=== PATIENT | male | born 1965 | race African-American/Black ===

== ENCOUNTER 2021-10-14 12:49 | Inpatient (IN) ==
[2021-10-14] MEDS ORDERED: AMMONIA INHALANT 1 EACH AMP INH ONE (13:50)
[2021-10-14 14:31] LABS: ABG Base Excess 0.3 MMOL/L (-2.5-2.5); ABG HCO3 24.7 MMOL/L (20-26); ABG Oxygen Saturation 97.9 % (95-100); ABG PCO2 32.4 MM HG (35-48); ABG PH 7.468 (7.35-7.45); ABG PO2 96.4 MM HG (80-95); ABG TCO2 21.3 MMOL/L (23-27)
[2021-10-14 14:50] LABS: Basophils # 0.1 10*3/uL (0.0-0.2); Basophils % 0.5 % (0.0-0.8); Eosinophils % 0.2 % (0.00-10.9); Hematocrit 27.7 VOL% (42.0-52.0); Immature Granulocytes % 3.2 %; Immature Granulocytes Absolute 0.39 #; Lymphocytes # 1.2 10*3/uL (1.4-4.0); Lymphocytes % 9.4 % (21.2-54.2); Mean Corpuscular HGB Conc 34.7 GM/DL (32-36); Mean Corpuscular Volume 70.8 FL (87-102); Mean Platelet Volume 9.7 FL (9.6-12.0); Monocytes % 3.3 % (1.7-12.7); NRBC # 0.29 10*3/uL; Neutrophils % 83.4 % (38.7-73.9); Red Cell Distribution Width 17.8 % (9.3-17.3); White Blood Count 12.3 T/CUMM (4-12)
[2021-10-14 15:00] LABS: INR 1.3; Partial Thromboplastin Time 32.1 SECS (23.8-32.1)
[2021-10-14 15:04] LABS: Hemoglobin 9.6 GM/DL (14.0-18.0); Platelet Count 77 T/CUMM (130-400); Red Blood Count 3.91 MC/CUMM (3.8-5.5)
[2021-10-14 15:10] LABS: Alanine Aminotransferase 130 U/L (16-61); Alkaline Phosphatase 435 U/L (45-117); Aspartate Amino Transferase 361 U/L (0-37); Blood Urea Nitrogen 30 MG/DL (7-18); Calcium 9.1 MG/DL (8.5-10.1); Carbon Dioxide 25 MMOL/L (21-32); Estimated Glom Filtration Rate 85 ML/MIN; Glucose 142 MG/DL (74-106); Osmolality,Calculated 286.4 MOS/KG (273-304); Potassium 4.1 MMOL/L (3.5-5.1); Sodium 140 MMOL/L (136-145); Total Protein 7.9 G/DL (6.4-8.2)
[2021-10-14 15:15] LABS: Anisocytosis Slight; Band Neutrophils 6 % (0-10); Hypochromia 1+; Lymphocytes 12 % (20-55); Metamyelocytes 1 %; Nucleated Red Blood Cells 6 (0-5); Segmented Neutrophils 80 % (50-85); Total Cells Counted 100
[2021-10-14 15:16] LABS: Platelet Estimate Decreased; Polychromasia 1+; Schistocytes Few; Target Cells Few
[2021-10-14 15:36] LABS: Acetaminophen < 2.0 UG/ML (10-30); Salicylate < 2.8 MG/DL (2.8-20)
[2021-10-14] MEDS ORDERED: cefTRIAXone 2,000 MG in SODIUM CHLORIDE 0.9% 100 ML IV ONE (15:53)
[2021-10-14] MEDS ORDERED: SODIUM CHLORIDE 0.9% 1,000 ML IV STA (16:01)
[2021-10-14] MEDS ORDERED: cefTRIAXone 2,000 MG VIAL ONE (16:13)
[2021-10-14] MEDS ORDERED: ONDANSETRON 4 MG/2 ML VIAL IV PRN (16:15)
[2021-10-14] MEDS ORDERED: ALBUTEROL 2.5 MG/3 ML NEB RESP TX PRN (16:15)
[2021-10-14 16:24] LABS: Bilirubin,Urine Negative (Negative); Blood, Urine Moderate mg/dL (Negative); Glucose,Urine (UA) 50 mg/dL (Negative); Ketones,Urine Negative (Negative); Mucus,Urine Occasional /LPF (Occasional); Nitrite,Urine Negative (Negative); Protein,Urine 30 MG/DL; RBC,Urine 2 /HPF (0-4); Squamous Epithelial Cell,Urine Occasional /HPF (0-10); Urine Appearance CLEAR (Clear); Urine Color Yellow (Yellow); Urine Specific Gravity 1.012 (1.001-1.035); Urine Urobilinogen < 2.0 EU/DL (<2.0)
[2021-10-14 16:28] LABS: Barbiturates Screen,Urine Negative (Negative); Benzodiazepines Screen,Urine Negative (Negative); Cannabinoid Screen,Urine Negative (Negative); Opiate Screen,Urine Negative (Negative); Phencyclidine Screen,Urine Negative (Negative)
[2021-10-14] MEDS: LACTATED RINGERS 1,000 ML IV SCH (17:18)
[2021-10-14] MEDS: MEROPENEM 500 MG in SODIUM CHLORIDE 0.9% 100 ML IV SCH ×2 (17:18→22:33)
[2021-10-14] MEDS: PANTOPRAZOLE 40 MG VIAL IV SCH (17:19)
[2021-10-14] MEDS: metroNIDAZOLE INJ 500 MG/100 ML PREMIX IV SCH (19:51)
[2021-10-14 19:54] LABS: Hepatitis B Core IgM Quant 0.24 Index; Hepatitis B Surface Ag Quant 0.17 Index; Hepatitis B Surface Ag Result Non-Reactive (NonReactive); Hepatitis C Virus Ab Quant 0.17 Index; Hepatitis C Virus Ab Result Non-Reactive (NonReactive)
[2021-10-14 20:57] LABS: Basophils % 0.2 % (0.0-0.8); Eosinophils % 0.2 % (0.00-10.9); Hematocrit 27.7 VOL% (42.0-52.0); Hemoglobin 9.7 GM/DL (14.0-18.0); Immature Granulocytes Absolute 0.21 #; Lymphocytes # 1.1 10*3/uL (1.4-4.0); Lymphocytes % 10.9 % (21.2-54.2); Mean Corpuscular Volume 69.9 FL (87-102); Mean Platelet Volume 9.5 FL (9.6-12.0); Monocytes % 3.1 % (1.7-12.7); Neutrophils % 83.6 % (38.7-73.9); Platelet Count 67 T/CUMM (130-400); Red Blood Count 3.96 MC/CUMM (3.8-5.5); Red Cell Distribution Width 17.9 % (9.3-17.3); White Blood Count 10.3 T/CUMM (4-12)
[2021-10-14 21:18] LABS: Band Neutrophils 2 % (0-10); Lymphocytes 7 % (20-55); Nucleated Red Blood Cells 3 (0-5); Segmented Neutrophils 87 % (50-85); Total Cells Counted 100
[2021-10-14 21:19] LABS: Anisocytosis 1+; Hypochromia 1+; Polychromasia 1+; Target Cells 1+
[2021-10-14 21:20] LABS: Platelet Estimate Decreased; Schistocytes Few
[2021-10-15] MEDS: metroNIDAZOLE INJ 500 MG/100 ML PREMIX IV SCH ×2 (00:45→08:53)
[2021-10-15] MEDS: MEROPENEM 500 MG in SODIUM CHLORIDE 0.9% 100 ML IV SCH ×3 (03:44→15:52)
[2021-10-15 04:57] LABS: ABG Base Excess 1.4 MMOL/L (-2.5-2.5); ABG HCO3 25.7 MMOL/L (20-26); ABG Oxygen Saturation 98.7 % (95-100); ABG PCO2 36.8 MM HG (35-48); ABG PH 7.446 (7.35-7.45); ABG TCO2 23.4 MMOL/L (23-27)
[2021-10-15] MEDS: LACTATED RINGERS 1,000 ML IV SCH ×4 (05:50→15:44)
[2021-10-15 06:02] LABS: Basophils % 0.3 % (0.0-0.8); Eosinophils % 0.4 % (0.00-10.9); Hematocrit 24.8 VOL% (42.0-52.0); Hemoglobin 8.8 GM/DL (14.0-18.0); Immature Granulocytes % 2.2 %; Immature Granulocytes Absolute 0.21 #; Lymphocytes # 0.9 10*3/uL (1.4-4.0); Lymphocytes % 9.7 % (21.2-54.2); Mean Corpuscular HGB Conc 35.5 GM/DL (32-36); Mean Corpuscular Volume 69.9 FL (87-102); Monocytes % 4.3 % (1.7-12.7); NRBC # 0.21 10*3/uL; Neutrophils % 83.1 % (38.7-73.9); Platelet Count 62 T/CUMM (130-400); Red Blood Count 3.55 MC/CUMM (3.8-5.5); Red Cell Distribution Width 17.8 % (9.3-17.3); White Blood Count 9.4 T/CUMM (4-12)
[2021-10-15 06:24] LABS: Albumin 3.3 G/DL (3.4-5.0); Band Neutrophils 1 % (0-10); Calcium 8.6 MG/DL (8.5-10.1); Lymphocytes 7 % (20-55); Nucleated Red Blood Cells 4 (0-5); Osmolality,Calculated 297.6 MOS/KG (273-304); Platelet Estimate Decreased; Potassium 4.2 MMOL/L (3.5-5.1); Segmented Neutrophils 90 % (50-85); Total Cells Counted 100; Total Protein 7.1 G/DL (6.4-8.2)
[2021-10-15 06:25] LABS: Hypochromia 1+; Microcytosis 1+
[2021-10-15 06:49] LABS: Bilirubin,Total 12.9 MG/DL (0.20-1.00)
[2021-10-15] MEDS: PANTOPRAZOLE 40 MG VIAL IV SCH (15:48)
[2021-10-15 16:12] LABS: % Iron Saturation 43.5 % (18-50); Ferritin 5355.2 ng/mL (26-388)
[2021-10-15] MEDS ORDERED: IBUPROFEN 100 MG/5 ML UDCUP PO PRN (19:28)
[2021-10-16] MEDS: LACTATED RINGERS 1,000 ML IV SCH (01:12)
[2021-10-16] MEDS: MEROPENEM 500 MG in SODIUM CHLORIDE 0.9% 100 ML IV SCH ×5 (01:12→22:05)
[2021-10-16] MEDS: IBUPROFEN 100 MG/5 ML UDCUP PO PRN ×3 (01:26→18:20)
[2021-10-16 05:48] LABS: Basophils % 0.4 % (0.0-0.8); Eosinophils # 0.1 10*3/uL (0.0-0.87); Eosinophils % 0.6 % (0.00-10.9); Hematocrit 22.7 VOL% (42.0-52.0); Hemoglobin 7.8 GM/DL (14.0-18.0); Immature Granulocytes % 3.3 %; Immature Granulocytes Absolute 0.32 #; Lymphocytes # 1.1 10*3/uL (1.4-4.0); Lymphocytes % 11.7 % (21.2-54.2); Mean Corpuscular HGB Conc 34.4 GM/DL (32-36); Mean Corpuscular Volume 71.8 FL (87-102); NRBC # 1.04 10*3/uL; Platelet Count 48 T/CUMM (130-400); Red Blood Count 3.16 MC/CUMM (3.8-5.5); Red Cell Distribution Width 17.9 % (9.3-17.3); White Blood Count 9.6 T/CUMM (4-12)
[2021-10-16 05:57] LABS: Osmolality,Calculated 308.9 MOS/KG (273-304); Potassium 4.3 MMOL/L (3.5-5.1); Thyroid Stimulating Hormone 0.821 uIU/ml (0.358-3.74)
[2021-10-16 05:59] LABS: Bilirubin,Total 14.2 MG/DL (0.20-1.00)
[2021-10-16 06:20] LABS: Eosinophils 1 % (0-10); Hypochromia 1+; Lymphocytes 12 % (20-55); Microcytosis 1+; Nucleated Red Blood Cells 18 (0-5); Platelet Estimate Decreased; Segmented Neutrophils 84 % (50-85); Total Cells Counted 100
[2021-10-16] MEDS: DEXTROSE 5% NACL 0.45% 1,000 ML IV SCH ×2 (07:22→15:31)
[2021-10-16] MEDS ORDERED: PNEUMOCOCCAL VACCINE (13 VALENT) 0.5 ML SYRINGE IM ONE (09:00)
[2021-10-16] MEDS ORDERED: INFLUENZA VIRUS VACCINE 0.5 ML SYRINGE IM ONE (09:00)
[2021-10-16] MEDS ORDERED: LACTULOSE 20 GM/30 ML UDCUP PO SCH (09:00)
[2021-10-16] MEDS ORDERED: IMMUNE GLOBULIN 10% 20 GM, IMMUNE GLOBULIN 10% 10 GM in PREMIX 1 EACH IV ONE (10:00)
[2021-10-16] MEDS ORDERED: SODIUM CHLORIDE 0.9% 1,000 ML IV PRN (10:08)
[2021-10-16] MEDS: VANCOMYCIN INJ 1,250 MG in SODIUM CHLORIDE 0.9% 250 ML IV SCH ×2 (12:29→22:38)
[2021-10-16] MEDS: PANTOPRAZOLE 40 MG VIAL IV SCH (15:40)
[2021-10-16] MEDS: INSULIN LISPRO 100 UNIT/ML SUBCUT SCH (17:54)
[2021-10-16 19:48] LABS: Hematocrit 28.1 VOL% (42.0-52.0); Hemoglobin 9.7 GM/DL (14.0-18.0)
[2021-10-17] MEDS: DEXTROSE 5% NACL 0.45% 1,000 ML IV SCH ×3 (00:20→17:45)
[2021-10-17] MEDS: INSULIN LISPRO 100 UNIT/ML SUBCUT SCH ×5 (00:20→23:57)
[2021-10-17] MEDS: IBUPROFEN 100 MG/5 ML UDCUP PO PRN ×2 (00:23→16:30)
[2021-10-17 05:23] LABS: Basophils # 0.1 10*3/uL (0.0-0.2); Eosinophils # 0.2 10*3/uL (0.0-0.87); Eosinophils % 2.9 % (0.00-10.9); Hematocrit 29.1 VOL% (42.0-52.0); Hemoglobin 10.3 GM/DL (14.0-18.0); Immature Granulocytes % 6.8 %; Immature Granulocytes Absolute 0.39 #; Lymphocytes # 0.9 10*3/uL (1.4-4.0); Lymphocytes % 15.3 % (21.2-54.2); Mean Corpuscular HGB Conc 35.4 GM/DL (32-36); Monocytes % 6.6 % (1.7-12.7); NRBC # 1.69 10*3/uL; Neutrophils % 67.4 % (38.7-73.9); Red Cell Distribution Width 22.3 % (9.3-17.3)
[2021-10-17 05:33] LABS: Platelet Count 51 T/CUMM (130-400)
[2021-10-17 05:34] LABS: Red Blood Count 3.83 MC/CUMM (3.8-5.5); White Blood Count 5.8 T/CUMM (4-12)
[2021-10-17 05:45] LABS: Band Neutrophils 6 % (0-10); Eosinophils 3 % (0-10); Hypochromia Slight; Lymphocytes 25 % (20-55); Microcytosis Slight; Nucleated Red Blood Cells 44 (0-5); Platelet Estimate Decreased; Segmented Neutrophils 61 % (50-85); Target Cells Few; Total Cells Counted 100
[2021-10-17] MEDS: MEROPENEM 500 MG in SODIUM CHLORIDE 0.9% 100 ML IV SCH ×4 (06:12→21:41)
[2021-10-17 06:34] LABS: Albumin 2.5 G/DL (3.4-5.0); Calcium 8.6 MG/DL (8.5-10.1); Osmolality,Calculated 309.7 MOS/KG (273-304); Potassium 4.7 MMOL/L (3.5-5.1)
[2021-10-17 06:35] LABS: Bilirubin,Total 15.6 MG/DL (0.20-1.00)
[2021-10-17] MEDS: MORPHINE 2 MG/1 ML SYRINGE IV PRN ×3 (09:30→21:55)
[2021-10-17] MEDS: VANCOMYCIN INJ 1,250 MG in SODIUM CHLORIDE 0.9% 250 ML IV SCH (11:35)
[2021-10-17] MEDS: ACETAMINOPHEN 325 MG/10.15 ML UDCUP PO PRN (11:45)
[2021-10-17] MEDS: PANTOPRAZOLE 40 MG VIAL IV SCH (16:00)
[2021-10-17] MEDS: FLUCONAZOLE INJ 200 MG/100 ML PREMIX IV SCH (18:05)
[2021-10-17] MEDS: LACTULOSE 20 GM/30 ML UDCUP PO SCH (18:05)
[2021-10-18] MEDS: VANCOMYCIN INJ 1,250 MG in SODIUM CHLORIDE 0.9% 250 ML IV SCH ×2 (00:02→11:30)
[2021-10-18] MEDS: LACTULOSE 20 GM/30 ML UDCUP PO SCH ×3 (00:07→12:20)
[2021-10-18] MEDS: DEXTROSE 5% NACL 0.45% 1,000 ML IV SCH ×4 (01:33→22:19)
[2021-10-18] MEDS: MORPHINE 2 MG/1 ML SYRINGE IV PRN ×2 (04:47→10:20)
[2021-10-18] MEDS: IBUPROFEN 100 MG/5 ML UDCUP PO PRN ×2 (04:49→13:40)
[2021-10-18] MEDS: MEROPENEM 500 MG in SODIUM CHLORIDE 0.9% 100 ML IV SCH ×4 (04:53→21:33)
[2021-10-18] MEDS: INSULIN LISPRO 100 UNIT/ML SUBCUT SCH ×3 (06:13→17:20)
[2021-10-18 06:38] LABS: Basophils % 0.3 % (0.0-0.8); Eosinophils # 0.1 10*3/uL (0.0-0.87); Eosinophils % 2.1 % (0.00-10.9); Hematocrit 27.9 VOL% (42.0-52.0); Hemoglobin 9.5 GM/DL (14.0-18.0); Immature Granulocytes % 8.6 %; Immature Granulocytes Absolute 0.56 #; Lymphocytes # 1.6 10*3/uL (1.4-4.0); Mean Corpuscular HGB Conc 34.1 GM/DL (32-36); Mean Corpuscular Volume 78.6 FL (87-102); NRBC # 3.78 10*3/uL; Platelet Count 41 T/CUMM (130-400); Red Blood Count 3.55 MC/CUMM (3.8-5.5); Red Cell Distribution Width 22.9 % (9.3-17.3); White Blood Count 6.5 T/CUMM (4-12)
[2021-10-18 06:44] LABS: INR 1.1; PT Patient Result 12.6 SECS (10.5-12.0); Partial Thromboplastin Time 26.6 SECS (23.8-32.1)
[2021-10-18 07:06] LABS: Albumin 2.3 G/DL (3.4-5.0); Calcium 8.2 MG/DL (8.5-10.1); Osmolality,Calculated 316.2 MOS/KG (273-304); Potassium 4.2 MMOL/L (3.5-5.1); Total Protein 6.7 G/DL (6.4-8.2)
[2021-10-18 07:08] LABS: Bilirubin,Total 17.5 MG/DL (0.20-1.00)
[2021-10-18 07:14] LABS: Band Neutrophils 6 % (0-10); Eosinophils 4 % (0-10); Hypochromia Slight; Lymphocytes 23 % (20-55); Nucleated Red Blood Cells 98 (0-5); Platelet Estimate Decreased; Segmented Neutrophils 61 % (50-85); Target Cells Few; Total Cells Counted 100
[2021-10-18 07:15] LABS: Microcytosis 1+
[2021-10-18 07:29] LABS: Alanine Aminotransferase 98 U/L (16-61); Albumin 2.2 G/DL (3.4-5.0); Alkaline Phosphatase 266 U/L (45-117); Aspartate Amino Transferase 143 U/L (0-37); Bilirubin,Indirect 4.9 MG/DL (0.0-1.0); Haptoglobin < 8.0 MG/DL (30-200); Total Protein 6.6 G/DL (6.4-8.2)
[2021-10-18 09:32] LABS: ABG Base Excess 0.2 MMOL/L (-2.5-2.5); ABG HCO3 24.7 MMOL/L (20-26); ABG Oxygen Saturation 98.9 % (95-100); ABG PCO2 47.9 MM HG (35-48); ABG PH 7.347 (7.35-7.45); ABG TCO2 24.2 MMOL/L (23-27)
[2021-10-18] MEDS ORDERED: SODIUM CHLORIDE 0.9% 1,000 ML IV PRN ×2 (10:12→10:45)
[2021-10-18 11:26] LABS: CMV DNA Detect/Quant, P Undetected IU/mL (Undetected)
[2021-10-18] MEDS: ACETAMINOPHEN 325 MG/10.15 ML UDCUP PO PRN (13:15)
[2021-10-18] MEDS ORDERED: SUCCINYLCHOLINE 200 MG/10 ML VIAL IV ONE (13:18)
[2021-10-18] MEDS ORDERED: ETOMIDATE 20 MG/10 ML VIAL IV ONE (13:18)
[2021-10-18] MEDS: VANCOMYCIN INJ 1,500 MG in SODIUM CHLORIDE 0.9% 500 ML IV SCH (15:10)
[2021-10-18] MEDS: PANTOPRAZOLE 40 MG VIAL IV SCH (16:25)
[2021-10-18] MEDS: FLUCONAZOLE INJ 200 MG/100 ML PREMIX IV SCH (17:05)
[2021-10-18 17:36] LABS: ABG Base Excess 2.3 MMOL/L (-2.5-2.5); ABG HCO3 26.5 MMOL/L (20-26); ABG Oxygen Saturation 99.5 % (95-100); ABG PCO2 42.7 MM HG (35-48); ABG PH 7.411 (7.35-7.45); ABG TCO2 25.6 MMOL/L (23-27); Pt O2 Delivery Device Ventilator
[2021-10-18] MEDS: ACYCLOVIR INJ 750 MG in SODIUM CHLORIDE 0.9% 250 ML IV SCH (18:30)
[2021-10-18] MEDS ORDERED: SODIUM CHLORIDE 0.45% 1,000 ML IV ONE (18:38)
[2021-10-19] MEDS: INSULIN LISPRO 100 UNIT/ML SUBCUT SCH ×4 (00:28→18:29)
[2021-10-19] MEDS: DEXTROSE 5% NACL 0.45% 1,000 ML IV SCH ×5 (00:38→22:12)
[2021-10-19 02:11] LABS: Basophils # 0.1 10*3/uL (0.0-0.2); Basophils % 1.4 % (0.0-0.8); Eosinophils # 0.2 10*3/uL (0.0-0.87); Eosinophils % 4.1 % (0.00-10.9); Hematocrit 19.8 VOL% (42.0-52.0); Immature Granulocytes % 7.6 %; Immature Granulocytes Absolute 0.28 #; Lymphocytes # 0.7 10*3/uL (1.4-4.0); Lymphocytes % 19.8 % (21.2-54.2); Mean Corpuscular HGB Conc 34.3 GM/DL (32-36); Mean Corpuscular Volume 75.3 FL (87-102); Mean Platelet Volume 9.5 FL (9.6-12.0); Monocytes % 12.5 % (1.7-12.7); NRBC # 1.26 10*3/uL; Neutrophils % 54.6 % (38.7-73.9); Platelet Count 70 T/CUMM (130-400); Red Blood Count 2.63 MC/CUMM (3.8-5.5); White Blood Count 3.7 T/CUMM (4-12)
[2021-10-19 02:12] LABS: Hemoglobin 6.8 GM/DL (14.0-18.0)
[2021-10-19 02:25] LABS: Basophils # 0.1 10*3/uL (0.0-0.2); Basophils % 1.5 % (0.0-0.8); Eosinophils # 0.1 10*3/uL (0.0-0.87); Eosinophils % 3.5 % (0.00-10.9); Hematocrit 19.3 VOL% (42.0-52.0); Hemoglobin 6.7 GM/DL (14.0-18.0); Immature Granulocytes % 7.1 %; Immature Granulocytes Absolute 0.24 #; Lymphocytes # 0.9 10*3/uL (1.4-4.0); Lymphocytes % 25.3 % (21.2-54.2); Mean Corpuscular HGB Conc 34.7 GM/DL (32-36); Mean Corpuscular Volume 75.1 FL (87-102); Mean Platelet Volume 8.5 FL (9.6-12.0); Monocytes % 7.6 % (1.7-12.7); NRBC # 1.14 10*3/uL; Platelet Count 58 T/CUMM (130-400); Red Blood Count 2.57 MC/CUMM (3.8-5.5); Red Cell Distribution Width 25.1 % (9.3-17.3); White Blood Count 3.4 T/CUMM (4-12)
[2021-10-19] MEDS: VANCOMYCIN INJ 1,500 MG in SODIUM CHLORIDE 0.9% 500 ML IV SCH (02:28)
[2021-10-19 02:29] LABS: Albumin 1.9 G/DL (3.4-5.0); Calcium 7.8 MG/DL (8.5-10.1); Osmolality,Calculated 317.4 MOS/KG (273-304); Potassium 4.2 MMOL/L (3.5-5.1); Total Protein 5.7 G/DL (6.4-8.2)
[2021-10-19] MEDS: ACYCLOVIR INJ 750 MG in SODIUM CHLORIDE 0.9% 250 ML IV SCH (02:29)
[2021-10-19 02:31] LABS: Bilirubin,Total 13.6 MG/DL (0.20-1.00)
[2021-10-19 02:39] LABS: Band Neutrophils 4 % (0-10); Eosinophils 8 % (0-10); Lymphocytes 16 % (20-55); Nucleated Red Blood Cells 65 (0-5); Segmented Neutrophils 66 % (50-85); Total Cells Counted 100
[2021-10-19 02:40] LABS: Hypochromia 1+; Microcytosis 1+; Platelet Estimate Decreased; Target Cells Few
[2021-10-19 04:36] LABS: ABG Base Excess 0.6 MMOL/L (-2.5-2.5); ABG Oxygen Saturation 99.2 % (95-100); ABG PCO2 41.2 MM HG (35-48); ABG PH 7.398 (7.35-7.45); ABG TCO2 23.8 MMOL/L (23-27)
[2021-10-19] MEDS: MEROPENEM 500 MG in SODIUM CHLORIDE 0.9% 100 ML IV SCH ×3 (05:27→21:32)
[2021-10-19] MEDS: MORPHINE 2 MG/1 ML SYRINGE IV PRN (06:16)
[2021-10-19 09:38] LABS: Basophils % 0.8 % (0.0-0.8); Eosinophils # 0.2 10*3/uL (0.0-0.87); Eosinophils % 4.2 % (0.00-10.9); Hematocrit 22.2 VOL% (42.0-52.0); Hemoglobin 7.5 GM/DL (14.0-18.0); Immature Granulocytes % 6.5 %; Immature Granulocytes Absolute 0.23 #; Lymphocytes # 0.7 10*3/uL (1.4-4.0); Lymphocytes % 19.8 % (21.2-54.2); Mean Corpuscular HGB Conc 33.8 GM/DL (32-36); Mean Corpuscular Volume 77.1 FL (87-102); Monocytes % 6.8 % (1.7-12.7); NRBC # 1.21 10*3/uL; Neutrophils % 61.9 % (38.7-73.9); Platelet Count 83 T/CUMM (130-400); Red Blood Count 2.88 MC/CUMM (3.8-5.5); Red Cell Distribution Width 25.6 % (9.3-17.3); White Blood Count 3.5 T/CUMM (4-12)
[2021-10-19 09:57] LABS: Antinuclear Ab, S 1.6 U
[2021-10-19 10:01] LABS: Band Neutrophils 9 % (0-10); Eosinophils 7 % (0-10); Hypochromia 1+; Lymphocytes 19 % (20-55); Metamyelocytes 1 %; Microcytosis 1+; Nucleated Red Blood Cells 37 (0-5); Polychromasia Slight; Segmented Neutrophils 60 % (50-85); Target Cells Few; Total Cells Counted 100
[2021-10-19 10:02] LABS: Platelet Estimate Decreased
[2021-10-19] MEDS: methylPREDNISolone SOD SUC 40 MG/1 ML VIAL IV SCH ×2 (11:16→18:00)
[2021-10-19 12:02] LABS: Hematocrit 24.7 VOL% (42.0-52.0); Hemoglobin 8.5 GM/DL (14.0-18.0)
[2021-10-19 12:20] VITALS: BP 140/82
[2021-10-19 13:16] LABS: Alpha-1-Antitrypsin, Serum 284 mg/dL (100 - 190)
[2021-10-19] MEDS ORDERED: ACYCLOVIR INJ 750 MG in SODIUM CHLORIDE 0.9% 250 ML IV SCH (14:00)
[2021-10-19] MEDS: PANTOPRAZOLE 40 MG VIAL IV SCH (17:30)
[2021-10-19] MEDS: FLUCONAZOLE INJ 200 MG/100 ML PREMIX IV SCH (17:33)
[2021-10-19 19:17] LABS: Albumin 1.8 G/DL (3.4-5.0); Bilirubin,Total 11.9 MG/DL (0.20-1.00); Calcium 7.4 MG/DL (8.5-10.1); Osmolality,Calculated 319.9 MOS/KG (273-304); Potassium 4.5 MMOL/L (3.5-5.1); Total Protein 5.9 G/DL (6.4-8.2)
[2021-10-19] MEDS ORDERED: METOPROLOL TARTRATE 5 MG/5 ML VIAL IV ONE (19:33)
[2021-10-19] MEDS ORDERED: cycloSPORINE OPH EMUL 1 VIAL BOTH EYES SCH (21:00)
[2021-10-23] MEDS ORDERED: INFLUENZA VIRUS VACCINE 0.5 ML SYRINGE IM ONE (11:32)
[2021-10-23] MEDS ORDERED: PNEUMOCOCCAL VACCINE (13 VALENT) 0.5 ML SYRINGE IM ONE (11:32)
== END 2021-10-19 22:40 | disposition hospice, home (50) | DRG 871 ==
LOC: EDBD → EDUNIT# → N.ED 12:49 → N.ICU 16:15 → SUATTDRO 16:15 → N.ICU 19:40
PROVIDERS: ADMIT Internal Medicine; ATTEND Internal Medicine